=== PATIENT | female | born 1995 | race Caucasian/White ===

== ENCOUNTER 2018-08-01 17:46 | Emergency (ER) | payer OTHER ==
[~2018-08-01] VITALS: Ht 167.6 cm; Wt 57.2 kg
[2018-08-01] MEDS ORDERED: TDAP DIPH,PERTUSS,TET VAC/PF 0.5 ML DISP.SYRIN IM ONE (17:57)
[2018-08-01] MEDS: TDAP DIPH,PERTUSS,TET VAC/PF 0.5 ML DISP.SYRIN IM ONE (18:00)
[2018-08-01] MEDS ORDERED: NEOMY/BACITRA/POLYMYXIN B OINT UD PACKET TP ONE (18:27)
--- NOTE | 2018-08-01 18:39 | NUR ---
Patient discharged to home in stable conditon. Written and verbal after care instructions given. Patient verbalizes understanding of instructions.PT ACCOMPANIED BY FAMILY MEMBERS.
[2018-08-01] MEDS: LIDOCAINE HCL 2% 20 ML VIAL IJ ONE (18:41)
== END 2018-08-01 18:43 | disposition home or self-care (01) ==
LOC: ER 17:47
DX: S91.115A Laceration without foreign body of left lesser toe(s) without damage to nail, initial encounter (principal); W22.8XXA Striking against or struck by other objects, initial encounter; Y93.89 Activity, other specified; Y92.89 Other specified places as the place of occurrence of the external cause; Y99.8 Other external cause status
CPT/HCPCS: 73660; 90715; A4217; A4663

== ENCOUNTER 2018-08-04 10:01 | Emergency (ER) | payer OTHER ==
[~2018-08-04] VITALS: Ht 167.6 cm; Wt 57.2 kg
[2018-08-04] MEDS ORDERED: CEPH250C PO (10:13)
[2018-08-04] MEDS ORDERED: HYDR-4209 PO (10:13)
--- NOTE | 2018-08-04 10:33 | NUR ---
Patient discharged to home in stable conditon. Written and verbal after care instructions given. Patient verbalizes understanding of instructions.
== END 2018-08-04 10:35 | disposition home or self-care (01) ==
LOC: ER 10:03
DX: S91.114D Laceration without foreign body of right lesser toe(s) without damage to nail, subsequent encounter (principal); Z48.01 Encounter for change or removal of surgical wound dressing; X58.XXXD Exposure to other specified factors, subsequent encounter
CPT/HCPCS: 99283; A4663

== ENCOUNTER 2022-11-15 16:06 | Emergency (ER) | END 2022-11-15 18:49 | disposition left against medical advice (07) | DX: Z53.21 Procedure and treatment not carried out due to patient leaving prior to being seen by health care provider (principal) ==

== ENCOUNTER → 2022-11-16 | Emergency (ER) | payer SELFPAY ==
[~2022-11-16] MED LIST: CEPH250C PO; HYDR-4209 PO
== END | disposition left against medical advice (07) ==
LOC: ER 15:28
DX: Z53.21 Procedure and treatment not carried out due to patient leaving prior to being seen by health care provider (principal)

== ENCOUNTER 2025-04-16 10:07 | Emergency (ER) | payer OTHER ==
[~2025-04-16] VITALS: Ht 167.6 cm; Wt 60.8 kg
[2025-04-16 11:03] LABS: BASOPHILS % (AUTO) 0.6 % (0.0-2.0); EOSINOPHILS % (AUTO) 0.4 % (0.0-7.0); HEMOGLOBIN 13.9 g/dL (10.9-14.3); LYMPHOCYTES # (AUTO) 1.8 K/uL (0.8-4.8); LYMPHOCYTES % (AUTO) 26.7 % (20.5-51.5); MEAN CORPUSCULAR HEMOGLOBIN 31.4 uug (24.7-32.8); MEAN CORPUSCULAR HGB CONC 35 g/dL (32.3-35.6); MEAN CORPUSCULAR VOLUME 90.7 fL (75.5-95.3); MONOCYTES # (AUTO) 0.5 K/uL (0.1-1.30); NEUTROPHILS # (AUTO) 4.3 K/uL (1.8-8.9); NEUTROPHILS % (AUTO) 65.3 % (38.5-71.5); PLATELET COUNT (AUTO) 330 K/uL (179-408); RED BLOOD CELL COUNT(AUTO) 4.41 MIL/uL (3.63-4.92); RED CELL DISTRIBUTION WIDTH 13.1 % (12.3-17.7); WHITE BLOOD COUNT (AUTO) 6.6 K/uL (3.8-11.8)
[2025-04-16 11:05] LABS: DIFFERENTIAL COMMENT 1
[2025-04-16 11:10] LABS: CREATININE 0.7 mg/dL (0.6-1.3); POTASSIUM 3.8 mmol/L (3.5-5.1)
[2025-04-16 11:18] LABS: *URINE HCG, QUAL NEGATIVE (NEGATIVE)
[2025-04-16 11:19] LABS: *BILIRUBIN,URIN NEGATIVE (NEGATIVE); *BLOOD, URINE 3+ (NEGATIVE); *CLARITY,URINE CLEAR (CLEAR); *COLOR,URINE YELLOW (YELLOW); *KETONES,URINE TRACE (NEGATIVE); *PROTEIN,URINE NEGATIVE (NEGATIVE); *UROBILINOGEN,URINE 0.2 E.U./dl (NORMAL); LEUKOCYTE ESTERASE ,URINE NEGATIVE (NEGATIVE); NITRITE, URINE NEGATIVE (NEGATIVE); PH,URINE 5.5 (5.0-8.0); UGLUCOSE NEGATIVE (NEGATIVE)
[2025-04-16 11:20] LABS: BACTERIA,URINE FEW /HPF (NONE SEEN); RBC,URINE 20-50 /HPF (0-3); SQUAMOUS EPITHELIAL CELL,UR FEW /HPF (NONE SEEN); URINE AMORPHOUS URATE FEW /HPF; WBC,URINE 0-3 /HPF (0-3)
[2025-04-16 12:05] VITALS: BP 121/70; O2SAT 99
== END 2025-04-16 12:07 | disposition home or self-care (01) ==
LOC: ER 10:07
DX: R61 Generalized hyperhidrosis (principal); R10.2 Pelvic and perineal pain; Z87.42 Personal history of other diseases of the female genital tract; Z87.448 Personal history of other diseases of urinary system; Z60.2 Problems related to living alone
CPT/HCPCS: 36415; 76856; 84703; 85025; 87086; A4606; A4663